=== PATIENT | female | born 1990 | race Caucasian/White ===

== ENCOUNTER 2019-06-09 05:48 | Inpatient (IN) ==
[2019-06-09] MEDS ORDERED: Ringers Solution, Lactated 1,000 ML IVC ONE (06:21)
[2019-06-09] MEDS ORDERED: Metoclopramide 10 MG/2 ML VIAL IVP ONE (06:21)
[2019-06-09] MEDS ORDERED: Famotidine 20 MG/2 ML VIAL IVP ONE (06:21)
[2019-06-09] MEDS ORDERED: Oxytocin 20 units/ LR 1000 mL 20 UNIT/1,000 ML BAG IVC ONE (06:21)
[2019-06-09] MEDS ORDERED: ceFAZolin 3,000 MG in Water for inj. (sterile) 30 ML IVP ONE (06:25)
[2019-06-09] MEDS ORDERED: Ringers Solution, Lactated 1,000 ML ONE ×2 (06:26→07:30)
[2019-06-09] MEDS ORDERED: Ringers Solution, Lactated 1,000 ML IVC SCH (06:30)
[2019-06-09] MEDS ORDERED: Oxytocin 20 units/ LR 1000 mL 20 UNIT/1,000 ML BAG IVC SCH (06:30)
[2019-06-09 06:35] LABS: Basophils % 0.2 %; Eosinophils # 0.2 K/mcL (0.0-0.6); Eosinophils % 1.7 %; Hematocrit 33.4 % (35.3-44.9); Hemoglobin 10.8 g/dL (11.5-15.4); Immature Granulocytes % 0.5 % (0-4); Lymphocytes # 2.7 K/mcL (0.6-4.6); Lymphocytes % 25.7 %; Mean Corpuscular HGB Conc 32.3 g/dL (31.6-35.5); Mean Corpuscular Hemoglobin 28.6 pg (28.0-33.3); Mean Corpuscular Volume 88.4 fL (83.0-100.0); Mean Platelet Volume 10.6 fL (9.4-12.4); Monocytes # 0.6 K/mcL (0.0-1.3); Monocytes % 5.8 %; Neutrophils # 6.8 K/mcL (1.6-8.9); Platelet Count 233 K/mcL (140-400); Red Blood Count 3.78 M/mcL (3.82-4.97); Red Cell Distribution Width 13.9 % (11.5-14.5); Segmented Neutrophils % 66.1 %; White Blood Count 10.3 K/mcL (4.3-11.1)
--- NOTE | 2019-06-09 07:16 | Anesthesia Evaluation PreOp ---
Date of Encounter: 06/09/19 Time of Encounter: 07:04 - Past History Planned Operation: repeat , Cardiac History: Denies any Significant Hx Pulmonary History: Denies Any Significant HX DRIVEWAY ATTENDANT History: Other (scoliosis, chronic back pain with sciatiac on left down to ankle.) Other Medical History: Other (MO, BMI=55) Anesthesia History: No Prior Anesthetic Complications, Past Anesthesia (first baby epidural one sided = GA second PDPH no blood patch offered =GA third could not get spinal = GA wishes to attempt regional this time but only wants 1 try) Alcohol Use: none Drug use: none Medications and Allergies [id number]/Ferrous Fumarate/FA [Kro Vitamins Tablet] 1 tab PO DAILY 12/03/18 [History] Famotidine 1 tab PO BID 01/15/19 [History] Allergy/AdvReac Type Severity Reaction Status Date / Time latex Allergy Rash Verified 06/09/19 06:17 Sulfa (Sulfonamide Allergy Rash Verified 06/09/19 06:17 Antibiotics) Anesthesia Results - Labs 06/09/19 06:24 Anesthesia Exam - HEENT Pupil (Motor): Pupils equal Mallampati: I Teeth: Normal Oral Opening: Greater than 3 - DRIVEWAY ATTENDANT LOC: Oriented DRIVEWAY ATTENDANT Motor: Normal RUE, Normal LUE, Normal RLE, Normal LLE, Normal Face DRIVEWAY ATTENDANT Sensory: Normal: RUE, LUE, RLE, LLE, Face - Cardiac Rhythm: Regular Murmur: None - Pulmonary Breath Sounds: bilateral Clear Respiratory Effort: Symmetrical Anesthesia Assess/Plan ASA Score: 3 (scoliosis, chronic back pain, super MO) Anesthetic Plan: General, Spinal, Epidural Monitoring Plan: Standard Monitors Recovery Plan: PACU
[2019-06-09] MEDS ORDERED: *HR* Morphine Sulfate/PF 10 MG/10 ML AMPUL ONE (07:21)
[2019-06-09] MEDS ORDERED: *HR* FentaNYL (PF) 100 MCG/2 ML VIAL ONE (07:22)
[2019-06-09] MEDS ORDERED: EPHEDrine 50 MG/ML VIAL ONE (07:24)
[2019-06-09] MEDS ORDERED: *HR* Phenylephrine 10 MG/ML VIAL ONE (07:24)
--- NOTE | 2019-06-09 07:32 | OB/GYN History & Physical ---
Date of Encounter: 06/09/19 Time of Encounter: 07:20 Assessment and Plan (1) 39 weeks gestation of Current visit: Yes Status: Acute (2) Modified White class B pregestational diabetes mellitus Current visit: Yes Status: Acute (3) Obesity affecting in third trimester Current visit: Yes Status: Acute (4) Encounter for maternal care for scar from repeat delivery Current visit: Yes Status: Acute Risks, benefits, and alternatives were previously discussed with the patient and informed consent obtained. She denies any questions today. I have offered and she declines sterilization procedure. (5) Cessation of tobacco use in previous 12 months Current visit: Yes Status: Acute History of Present Illness Chief complaint: repeat HPI: Ms. Maguire is a 28 year old female G 10 P 3-0-6-3 at 39 1/7 weeks presents for repeat section. She denies any leaking fluid, vaginal bleeding, or contractions. She reports good movement and good glycemic control. complications: previous x 3, morbid obesity, history of incarceration, class B diabetes, tobacco use in the first trimester, and ASCUS pap with positive HPv Past Med Surg Social Fam HX - Past Medical History Source: patient Medical history: hypertension Psychiatric history: anxiety, depression, schizophrenia, other - Past Surgical History Surgical History: , cholecystectomy Additional surgical history: ACL repair left - Social History Smoking Status: Former smoker Smokeless Tobacco Status: No Alcohol use: none Drug use: none - Family History Father Hx Family Medical Disorders: Yes Obstetrical History - Pregnancies : 10 Para: 3 Term: 3 Ab's: 6 Livin - History/Complications History/Complications: with her 3 prior deliveries Medications and Allergies [id number]/Ferrous Fumarate/FA [Kro Vitamins Tablet] 1 tab PO DAILY 12/03/18 [History] Famotidine 1 tab PO BID 01/15/19 [History] Allergy/AdvReac Type Severity Reaction Status Date / Time latex Allergy Rash Unverified 06/09/19 07:41 Sulfa (Sulfonamide Allergy Rash Verified 06/09/19 06:17 Antibiotics) Review of System OB All systems PM: reviewed and no additional remarkable complaints except as stated Exam - Constitutional Constitutional: well developed, well nourished, no acute distress, morbidly obese - HEENT HEENT: Normocephaly, Mucus Membranes Moist - Lungs Respiratory exam: CTAB - Cardiovascular Cardiovascular exam: RRR - Abdomen Abdomen: Present: bowel sounds normal, gravid, non tender - Extremities Deep Tendon Reflex Grade: 2+ Normal Results Result Diagrams: 06/09/19 06:24 Abnormal lab results RBC 3.78 M/mcL (3.82-4.97) L 06/09/19 06:24 Hgb 10.8 g/dL (11.5-15.4) L 06/09/19 06:24 Hct 33.4 % (35.3-44.9) L 06/09/19 06:24 All other labs normal.
[2019-06-09] MEDS ORDERED: Acetaminophen IV 1,000 MG/100 ML INFUS..BTL IVPB ONE (07:37)
[2019-06-09] MEDS ORDERED: *HR* Promethazine 25 MG/ML VIAL IVP PRN (07:37)
[2019-06-09] MEDS ORDERED: Ondansetron 4 MG/2 ML VIAL IVP ONE (07:37)
[2019-06-09] MEDS ORDERED: *HR* OxyCODONE Immed Rel 5 MG TABLET PO PRN ×2 (07:37→11:06)
[2019-06-09] MEDS ORDERED: *HR* Nalbuphine 10 MG/ML AMPUL IV PRN (07:37)
[2019-06-09] MEDS ORDERED: *HR* Meperidine 25 MG/ML SYRINGE IVP PRN (07:37)
[2019-06-09] MEDS ORDERED: Ketorolac 30 MG/ML VIAL IVP ONE (07:37)
[2019-06-09] MEDS ORDERED: Albuterol 2.5 MG/3 ML NEBULIZER IH ONE (07:37)
[2019-06-09] MEDS ORDERED: *HR* HYDROmorphone (PF) 1 MG/ML SYRINGE IVP PRN (07:37)
[2019-06-09] MEDS ORDERED: *HR* Oxytocin 10 UNIT/ML VIAL IM ONE (08:13)
--- NOTE | 2019-06-09 09:23 | OB/GYN Procedure Note ---
Section - Date of procedure: 06/09/19 Preop diagnosis: desires repeat Post-op diagnosis: same Procedure: section, repeat low transverse Surgeon: Rakel Elmore Blood Loss: [phone] Was there an insurance account assistant present: Yes Post Secondary Professional: Ruchi Milton Quality Specialist: Malachi Joyner Anesthesia Type: Spinal section complications: none Disposition: L&D Recovery Room Specimens: Cord blood - (s) A Delivery Date: 06/09/19 Delivery Time: Presentation: vertex Gender: Female Viability: Viable Pounds: 7 Ounces: 4 Gram Weight: 3.28 kg at 1 minute: 9 at 5 minutes: 9 Shoulder Dystocia: not encountered Specimens collected: cord blood Placenta: spontaneous Cord: nuchal cord, 3 umbilical vessels, nuchal reduced - Narrative Narrative: Patient was taken to the operative suite and placed under spinal anesthetic. She was then prepped and draped in normal sterile fashion in the dorsal supine position. Timeout was then performed. Antibiotics were given at room time. SCDs are on and active. Pfannenstiel skin incision is then made and carried through to underlying layer of fascia with the Bovie. The fascia was then incised in the midline and incision extended laterally with the Rutledge scissors. The fascia was tented up and dissected off the rectus muscles sharply. The rectus muscles were in the midline and the peritoneum was tented up and entered sharply with the Metzenbaum scissors. The peritoneal incision was then extended bluntly. Omental adhesions adhered to the anterior abdominal wall reduced with Bovie electrocautery. Due to scarring and insufficient room a partial Maylard was then performed with Bovie electrocautery to the rectus muscle on the right side. The Tye retractor was then inserted and the vesicouterine peritoneum was entered sharply. Bladder flap was created digitally. A low transverse uterine incision was then made. The vertex was brought to the incision and the infant was delivered using fundal pressure. There was a nuchal cord that was reduced. Cord was clamped and cut. was handed to waiting nursery staff. Placenta delivered spontaneously complete and intact with a three-vessel cord. The uterus was cleared of all clots and debris using moist laparotomy sponge. The uterine incision was then closed using 0 Vicryl in a running locked fashion. A second layer of the same suture was used to obtain excellent hemostasis. The abdomen was then cleared of all clots and debris using copious irrigation. The fascial incision was then closed using 0 PDS in a running fashion. The subcuticular tissue was reapproximated using 0 plain gut in a running fashion in 2 separate layers. The skin was closed using 4-0 Vicryl in a subcuticular fashion. Steri-Strips and sterile loli dressing are then placed. Mother and taken to recovery in stable condition.
--- NOTE | 2019-06-09 09:45 | Anesthesia Evaluation Post Op ---
Date of Encounter: 06/09/19 Time of Encounter: 09:44 - Vital Signs Vital Signs: vss - Lungs Lungs: Clear Ascult./Percussion - Airway Airway: Non-obstructed - Mental Status Mental Status: Alert & Oriented, Answers Appropriately - Pain Pain Scale used: ToddCeasar (Faces) - Nausea Vomiting Nausea Vomiting: Not Present - Hydration Hydration: Ice chips, Ledezma catheter - Discharge PostOp Status: Transfer Patient to floor (when cleared)
[2019-06-09] MEDS ORDERED: Metoclopramide 10 MG/2 ML VIAL IVP PRN (11:06)
[2019-06-09] MEDS ORDERED: Sennosides 8.6 MG TABLET PO PRN (11:06)
[2019-06-09] MEDS ORDERED: Rho Immune Globulin 1,500 UNIT SYRINGE IM ONE (11:06)
[2019-06-09] MEDS ORDERED: Ondansetron 4 MG/2 ML VIAL IVP PRN (11:06)
[2019-06-09] MEDS ORDERED: Simethicone 80 MG TAB.CHEW PO PRN (11:06)
[2019-06-09] MEDS ORDERED: Naloxone 0.4 MG/ML INJ IVP PRN (11:06)
[2019-06-09] MEDS ORDERED: Acetaminophen 325 MG TABLET PO PRN (11:06)
[2019-06-09 11:22] LABS: Amphetamine Screen,Urine Negative ng/mL (Cutoff=1000); Barbiturate Screen,Urine Negative ng/mL (Cutoff=200); Benzodiazepines Screen,Urine Negative ng/mL (Cutoff=200); Cannabinoid Screen,Urine Negative ng/mL (Cutoff = 50); Cocaine Screen,Urine Negative ng/mL (Cutoff= 300); Opiate Screen,Urine Negative ng/mL (Cutoff=300); Phencyclidine Screen,Urine Negative ng/mL (Cutoff=25)
[2019-06-09] MEDS: Oxytocin 20 units/ LR 1000 mL 20 UNIT/1,000 ML BAG IVC SCH ×2 (13:21→21:28)
[2019-06-09] MEDS: *HR* OxyCODONE/APAP 5/325 TABLET PO PRN (21:36)
[2019-06-09] MEDS: Ibuprofen 600 MG TABLET PO PRN (21:36)
[2019-06-10] MEDS: Ibuprofen 600 MG TABLET PO PRN ×3 (05:47→23:42)
[2019-06-10] MEDS: *HR* OxyCODONE/APAP 5/325 TABLET PO PRN ×3 (05:47→20:41)
[2019-06-10] MEDS ORDERED: *HR* Enoxaparin 40 MG/0.4 ML SYRINGE SQ SCH (06:00)
[2019-06-10] MEDS: Prenatal Vit/FA 1 EACH TABLET PO SCH (08:37)
[2019-06-10] MEDS: Famotidine 20 MG TABLET PO SCH ×2 (08:37→16:29)
--- NOTE | 2019-06-10 10:53 | OB/GYN Progress Note ---
Date of Encounter: 06/10/19 Time of Encounter: 10:51 - Assessment and Plan (1) delivery delivered Current Visit: Yes Status: Acute Continue routine /postop care Meeting appropriate milestones Subjective - Subjective Principal diagnosis: Repeat Delivery Interval history: S/P Repeat delivery day 1 Pain is well controlled lochia is light and without clots tolerating regular diet, passing flatus voiding without difficulty VSS bottle feeding anticipate discharge home tomorrow POC per consult with Dr Tinajero Patient reports: appetite normal, voiding normally, pain well controlled, ambulating normally : doing well, bottle feeding Objective - Vital Signs Latest vital signs: Vital Signs Temp Pulse Resp BP Pulse Ox 06/10/19 08:05 97.9 F 75 16 113/72 94 06/10/19 05:30 97.8 F 87 18 120/81 96 06/09/19 20:45 98.7 F 81 16 133/75 96 06/09/19 15:00 98.5 F 86 20 118/77 06/09/19 13:33 98.3 F 85 20 110/75 95 06/09/19 12:45 98.3 F 91 16 126/87 96 06/09/19 12:30 97.7 F 86 18 118/74 97 06/09/19 11:47 98.6 F 81 20 124/71 97 Intake and Output 06/09/19 06/10/19 06/10/19 23:59 07:59 15:59 Intake Total 2000 / 2400 1550 / 1750 200 / 1750 Output Total 700 / 700 Balance 2000 / 1800 850 / 1050 200 / 1050 Intake: IV Fluids 1000 / 1000 950 / 950 Pitocin 20 unit In 1,000 ml @ 1000 / 1000 950 / 950 125 mls/hr IVC .Q8H CORIE Rx#: [id number] Oral 1000 / 1400 600 / 800 200 / 800 Output: Catheter 700 / 700 Other: Meal Dinner Breakfast Percent of Meal Consumed 90% 100% # Voids 1 - Exam Lungs: bilateral: normal Chest: Normal S1, Normal S2 Extremities: Present: normal Abdomen: Present: normal appearance, soft. Absent: gravid, distention, tenderness Incision: Present: normal (CATHERINE dressing intact), dry, intact Uterus: Present: normal, firm Fundal Height: 0 (u/1) - Labs Labs: Laboratory Results - last 24 hr 06/09/19 06:24 Urine Opiates Screen Negative Ur Buprenorphine Scrn Negative Ur Barbiturates Screen Negative Ur Phencyclidine Scrn Negative Ur Amphetamines Screen Negative U Benzodiazepines Scrn Negative Urine Cocaine Screen Negative U Marijuana (THC) Screen Negative
[2019-06-11] MEDS: *HR* OxyCODONE/APAP 5/325 TABLET PO PRN ×3 (03:58→20:17)
[2019-06-11] MEDS: *HR* Enoxaparin 40 MG/0.4 ML SYRINGE SQ SCH (08:50)
[2019-06-11] MEDS: Ibuprofen 600 MG TABLET PO PRN (08:51)
[2019-06-11] MEDS: Famotidine 20 MG TABLET PO SCH ×2 (08:51→15:26)
[2019-06-11] MEDS: Prenatal Vit/FA 1 EACH TABLET PO SCH (08:51)
--- NOTE | 2019-06-11 09:40 | OB/GYN Progress Note ---
Date of Encounter: 06/11/19 Time of Encounter: 09:37 - Assessment and Plan (1) Status post repeat low transverse section Current Visit: Yes Status: Acute Patient has met all milestones. She is having no difficulty with urination, or passing gas. She is able to ambulate, she is eating and drinking appropriately. She is having minimal lochia. Her pain is controlled when she is taking the Motrin and Percocet. Her mood is appropriate At this point time she would be eligible for discharge, but given her social situation, and the need to have her child on the 3 day home we will continue to keep her as an inpatient until morning. Subjective - Subjective Principal diagnosis: Status post section Interval history: Patient is on day 2 status post section Patient reports: appetite normal, voiding normally, pain poorly controlled (She reports that she feels that she was hit by a semitruck, but she does state that when she takes her Motrin, or Percocet that her pain does get better. She describes her pain as a dull constant achy pain sometimes becomes sharp with movement over her incision site. She has no other complaints at this time), ambulating normally, other (The patient is passing gas, but is yet to have a bowel movement. She has had minimal lochia since the . She is changed her pad 3 times but none of them have been near full. ), no nauseated [place]: doing well, bottle feeding Objective - Vital Signs Latest vital signs: Vital Signs Temp Pulse Resp BP Pulse Ox 06/11/19 08:12 98.2 F 83 16 131/78 95 06/11/19 03:48 79 16 103/57 06/10/19 23:46 146/83 06/10/19 20:40 98.6 F 84 14 139/85 96 Intake and Output 06/10/19 06/11/19 06/11/19 23:59 07:59 15:59 Intake Total 200 / 1950 800 / 1040 240 / 1040 Output Total 500 / 1200 414 / 414 Balance -300 / 750 386 / 626 240 / 626 Intake: Oral 200 / 1000 800 / 1040 240 / 1040 Output: Urine 500 / 500 414 / 414 - Exam Lungs: bilateral: normal Chest: Normal S1, Normal S2 Extremities: Present: edema (Minimal nonpitting edema bilaterally on the lower extremities) Abdomen: Present: normal appearance, soft, other (Is some mild ecchymosis noted to the abdomen. The patient is receiving Lovenox injections. Bowelsounds 4) Incision: Present: dry, intact, dressed (There has been no increase in the margin of blood on the dressing from yesterday.) Uterus: Present: normal, firm Comments: Uterine fundus is 1-1-1/2 finger lengths below the umbilicus Patient shows no signs of depression or anxiety, her mood is appropriate
[2019-06-11 19:59] VITALS: BP 122/77
[2019-06-12] MEDS: Ibuprofen 600 MG TABLET PO PRN (01:52)
[2019-06-12] MEDS: *HR* OxyCODONE/APAP 5/325 TABLET PO PRN ×2 (02:32→08:03)
[2019-06-12] MEDS: Prenatal Vit/FA 1 EACH TABLET PO SCH (08:03)
[2019-06-12] MEDS: Famotidine 20 MG TABLET PO SCH (08:03)
[2019-06-12] MEDS: *HR* Enoxaparin 40 MG/0.4 ML SYRINGE SQ SCH (08:04)
--- NOTE | 2019-06-12 10:20 | Discharge Summary ---
Date of Encounter: 06/12/19 Time of Encounter: 10:18 - Discharge Diagnosis (1) Status post repeat low transverse section Priority: Primary Status: Acute Comments: Stable, meeting all PP milestones, pain well managed, desires discharge. - Discharge Medications Prescriptions: New Ibuprofen [Motrin] 600 mg PO Q6HR PRN #60 tablet PRN Reason: Cramping OxyCODONE/APAP 5/325 [Percocet 5/325 MG] 1 each PO Q4HR PRN 5 Days #20 tablet PRN Reason: Moderate pain 4-6 Acetaminophen [Tylenol] 325 mg PO Q6HR PRN tablet PRN Reason: Fever/Pain Docusate [Colace] 100 mg PO BID #30 capsule Simethicone [Gas-X] 80 mg PO TID PRN tab.chew PRN Reason: Dyspepsia Continued Ifl800/Ferrous Fumarate/FA [Kro Vitamins Tablet] 1 tab PO DAILY Famotidine 1 tab PO BID Home Medications: [id number]/Ferrous Fumarate/FA [Kro Vitamins Tablet] 1 tab PO DAILY 12/03/18 [History] Famotidine 1 tab PO BID 01/15/19 [History] Acetaminophen [Tylenol] 325 mg PO Q6HR PRN tablet 06/12/19 [Rx] Docusate [Colace] 100 mg PO BID #30 capsule 06/12/19 [Rx] Ibuprofen [Motrin] 600 mg PO Q6HR PRN #60 tablet 06/12/19 [Rx] OxyCODONE/APAP 5/325 [Percocet 5/325 MG] 1 each PO Q4HR PRN 5 Days #20 tablet 06/12/19 [Rx] Simethicone [Gas-X] 80 mg PO TID PRN tab.chew 06/12/19 [Rx] Allergies/Adverse Reactions: Allergy/AdvReac Type Severity Reaction Status Date / Time Sulfa (Sulfonamide Allergy Rash Verified 06/12/19 06:38 Antibiotics) latex AdvReac Mild Rash Unverified 06/12/19 06:38 Data Procedures and tests throughout hospitalization: Laboratory Tests 06/09/19 06/09/19 06:24 06:24 WBC 10.3 RBC 3.78 L Hgb 10.8 L Hct 33.4 L MCV 88.4 MCH 28.6 MCHC 32.3 RDW 13.9 Plt Count 233 MPV 10.6 Immature Gran % 0.5 Seg Neutrophils % 66.1 Lymphocytes % 25.7 Monocytes % 5.8 Eosinophils % 1.7 Basophils % 0.2 Neutrophils # 6.8 Lymphocytes # 2.7 Monocytes # 0.6 Eosinophils # 0.2 Basophils # 0.0 Urine Opiates Screen Negative Ur Buprenorphine Scrn Negative Ur Barbiturates Screen Negative Ur Phencyclidine Scrn Negative Ur Amphetamines Screen Negative U Benzodiazepines Scrn Negative Urine Cocaine Screen Negative U Marijuana (THC) Screen Negative Ur Drug Screen Interp See Below Date of admission: 06/09/19 05:48 Primary care physician: PCP NONE Consults: 06/09/19 11:06 Consult to Occupational Therapist Per Diem (W&C) [CONS] Routine Reason For Exam: Reason for SW Consult: history of incarceration and does not have custody of her children Discharging clinician: Chelsie Lewis Anticipated date of discharge: 06/12/19 - Patient Status Disposition: Home, Self-Care Condition: Good Functional capacity at discharge: independent ambulation Overall status at discharge: patient is progressing back to baseline - Discharge Instructions Instructions: Section (DC), Your 's Appearance (DC), Caring for Your Baby (GEN) Follow Up With: Rakel Purcell DO [Partnered Physician] - 06/23/19 3:15 pm (C/S FOLLOW UP) NONE,PCP [Primary Care Provider] - Additional Instructions: ATTEND FOLLOW-UP APPOINTMENT Perineal Care: Always wipe front to back Change your pad frequently Use your jayce bottle with warm water and spray front to back Do not douche, use tampons, have sexual intercourse or put anything in your vagina for 4-6 weeks after delivery Bleeding: Vaginal bleeding can last up to 6 weeks Your menstrual period may return as early as 6 weeks after you are discharged from the hospital Mead/Stitches Care: Vaginal Delivery Vaginal stitches will dissolve within 4-6 weeks Follow perineal care instructions Care Stitches will dissolve on their own If you have ken, they will need to be removed in the doctors office within 5-7 days. You may shower with stitches or ken Drip plan or soapy water over the incision to clean. Pat dry gently with a clean towel. Make sure you completely dry under the skin folds DO NOT USE powders, lotions, rubbing alcohol or hydrogen peroxide on or around your incision. This will slow your wound healing It is normal to have soreness, burning, tingling, itchiness and/or numbness as your incision heals Activity: Rest frequently Do not lift anything heavier than a gallon of milk, up to 10-15 pounds No driving for 1-2 weeks for Vaginal delivery No driving for 2-4 weeks for delivery Take stairs slowly, one at a time Gradually increase your daily activity until you are back to your normal routine Do not exercise until you have had your follow-up appointment Bathing: Take a shower daily Do not take a tub bath for the first 4 weeks Diet: Drink plenty of water and fruit juices Eat a well-balanced diet with foods high in fiber such as fruits and vegetables Depression: Your hormones have a major impact on your feelings and emotions. Hormone imbalance may cause changes in your mood, creating unfamiliar thoughts and actions. Support is available to help you understand and cope with these feelings and mood changes. If you answer yes to any of the following questions, please call your health care provider: Are you having trouble sleeping? Are you feeling isolated? Have you lost your appetite? Are you having thoughts of hurting yourself or others? WARNING SIGNS: Heavy bleeding from the vagina (blood is bright red and soaks a sanitary pad in an hour or less.) Passing a blood clot larger than your fist Discharge from the vagina that has a bad odor Temperature over 100.4 F, or if you feel cold and have chills An episiotomy site that is warm, swollen or oozing. Use a mirror if needed Urination (pee) that is painful, very red and swollen or leaking fluid An incision that is painful, very red and swollen and leaking fluid An incision that has come open Breasts that are painful or full with flu like symptoms Redness, warmth or swelling in the calf of your leg Trouble breathing, dizziness, visual disturbance or faintness *Notify your health care provider immediately or go to the nearest Emergency Room if you experience any of the above signs.* To contact the nurses station 24 hours a day, For non-urgent, routine questions, please call the office at - Diet and Activity Activity: resume usual activities as tolerated Diet: regular diet Hospital Course Reason for admission: section Delivery: section Episiotomy: none Laceration: none Other procedures: none complications: none Discharge diagnosis: IUP at term delivered Hospital course: Section - Date of procedure: 06/09/19 Preop diagnosis: desires repeat Post-op diagnosis: same Procedure: section, repeat low transverse Surgeon: Rakel Elmore Blood Loss: 600 Was there an legislative assistant present: Yes Founder: Ruchi Milton Diamond Setter: Malachi Joyner Anesthesia Type: Spinal section complications: none Disposition: L&D Recovery Room Specimens: Cord blood - Infant (s) Infant A Infant Delivery Date: 06/09/19 Infant Delivery Time: : Presentation: vertex Gender: Female Viability: Viable Pounds: 7 Ounces: 4 Gram Weight: 3.28 kg at 1 minute: 9 at 5 minutes: 9 Shoulder Dystocia: not encountered Specimens collected: cord blood Placenta: spontaneous Cord: nuchal cord, 3 umbilical vessels, nuchal reduced Stable in PP and appropriate for discharge OARRS reviewed Time Attestation: Total time spent providing and/or coordinating discharge services: - VTE Documentation of Mechanical Device: Intermittent pneumatic compression device Exam - Constitutional Vitals: Temp Pulse Resp BP Pulse Ox 98.3 F 73 16 122/77 96 06/11/19 19:58 06/11/19 19:58 06/11/19 19:58 06/11/19 19:58 06/11/19 19:58 General appearance IM: A&O X 3 - Respiratory Respiratory exam: Present: CTAB - Cardiovascular Cardiovascular exam IM: Present: RRR - GI/Abdominal GI/Abdominal exam IM: soft Incision: dressed (CATHERINE in place ) - Uterine Tone: Firm Uterus Position: At Umbilicus - Extremities Exam Extremities exam IM: Present: normal capillary refill, normal inspection - Neurological Exam Neurological exam: normal gait, oriented X3 - Psychiatric Additional comments: reports good mood
== END 2019-06-12 11:49 | disposition home or self-care (01) | DRG 540 ==
LOC: 1NENULAB 05:48 → 1NENUOBS 11:37
PROVIDERS: ADMIT Obstetrics & Gynecology; ATTEND Obstetrics & Gynecology

== ENCOUNTER 2020-08-13 06:16 | Inpatient (IN) ==
[2020-08-13] MEDS ORDERED: Metoclopramide 10 MG/2 ML VIAL IVP ONE (06:22)
[2020-08-13] MEDS ORDERED: CeFAZolin Syr 3,000MG/30 ML 3,000 MG/30 ML SYRINGE IVPB ONE (06:22)
[2020-08-13] MEDS ORDERED: Famotidine 20 MG/2 ML VIAL IVP ONE (06:22)
[2020-08-13] MEDS ORDERED: Ringers Solution, Lactated 1,000 ML IVC ONE (06:22)
[2020-08-13 06:37] LABS: Basophils % 0.4 %; Eosinophils # 0.3 K/mcL (0.0-0.6); Eosinophils % 2.3 %; Hematocrit 36.8 % (35.3-44.9); Hemoglobin 11.8 g/dL (11.5-15.4); Immature Granulocytes % 0.9 % (0-4); Lymphocytes # 2.6 K/mcL (0.6-4.6); Lymphocytes % 23.4 %; Mean Corpuscular HGB Conc 32.1 g/dL (31.6-35.5); Mean Corpuscular Hemoglobin 27.3 pg (28.0-33.3); Mean Corpuscular Volume 85.2 fL (83.0-100.0); Mean Platelet Volume 10.5 fL (9.4-12.4); Monocytes # 0.6 K/mcL (0.0-1.3); Monocytes % 5.8 %; Neutrophils # 7.4 K/mcL (1.6-8.9); Platelet Count 266 K/mcL (140-400); Red Blood Count 4.32 M/mcL (3.82-4.97); Red Cell Distribution Width 13.4 % (11.5-14.5); Segmented Neutrophils % 67.2 %
[2020-08-13 06:47] LABS: Amphetamine Screen,Urine Negative ng/mL (Cutoff=1000); Barbiturate Screen,Urine Negative ng/mL (Cutoff=200)
[2020-08-13 06:48] LABS: Benzodiazepines Screen,Urine Negative ng/mL (Cutoff=300)
[2020-08-13 06:49] LABS: Cannabinoid Screen,Urine Negative ng/mL (Cutoff = 50); Cocaine Screen,Urine Negative ng/mL (Cutoff= 300); Opiate Screen,Urine Negative ng/mL (Cutoff=300); Phencyclidine Screen,Urine Negative ng/mL (Cutoff=25)
[2020-08-13] MEDS ORDERED: *HR* FentaNYL (PF) 100 MCG/2 ML VIAL ONE (06:54)
[2020-08-13] MEDS ORDERED: *HR* Oxytocin 10 UNIT/ML VIAL IM ONE (06:54)
[2020-08-13] MEDS ORDERED: *HR* Morphine Sulfate/PF 10 MG/10 ML AMPUL ONE (06:54)
[2020-08-13] MEDS ORDERED: EPHEDrine 50 MG/ML VIAL ONE (06:55)
[2020-08-13] MEDS ORDERED: Oxytocin 20 units/ LR 1000 mL 40 UNIT/2,000 ML BAG IVC ONE (07:26)
[2020-08-13] MEDS ORDERED: Ringers Solution, Lactated 1,000 ML ONE (07:26)
[2020-08-13] MEDS ORDERED: Ondansetron 4 MG/2 ML VIAL IVP PRN ×2 (08:29→11:38)
[2020-08-13] MEDS ORDERED: *HR* HYDROmorphone PF 0.5 MG/0.5 ML SYRINGE IVP PRN (08:29)
[2020-08-13] MEDS ORDERED: Acetaminophen IV 1,000 MG/100 ML INFUS..BTL IVPB PRN (08:29)
[2020-08-13] MEDS ORDERED: Simethicone 80 MG TAB.CHEW PO PRN (11:38)
[2020-08-13] MEDS ORDERED: Sennosides 8.6 MG TABLET PO PRN (11:38)
[2020-08-13] MEDS ORDERED: Oxytocin 20 units/ LR 1000 mL 20 UNIT/1,000 ML BAG IVC SCH (11:38)
[2020-08-13] MEDS ORDERED: *HR* OxyCODONE Immed Rel 5 MG TABLET PO PRN (11:38)
[2020-08-13] MEDS ORDERED: Metoclopramide 10 MG/2 ML VIAL IVP PRN (11:38)
[2020-08-13] MEDS ORDERED: Acetaminophen 325 MG TABLET PO PRN (11:38)
[2020-08-13] MEDS: Ibuprofen 600 MG TABLET PO PRN (20:14)
[2020-08-14] MEDS: *HR* OxyCODONE/APAP 5/325 TABLET PO PRN ×3 (04:29→18:10)
[2020-08-14] MEDS: Ibuprofen 600 MG TABLET PO PRN ×3 (04:29→18:10)
[2020-08-14] MEDS: Prenatal Vit/FA 1 EACH TABLET PO SCH (07:45)
[2020-08-14] MEDS: *HR* Enoxaparin 80 MG/0.8 ML SYRINGE SQ SCH ×2 (10:15→18:10)
[2020-08-15] MEDS: Ibuprofen 600 MG TABLET PO PRN ×2 (00:22→07:26)
[2020-08-15] MEDS: *HR* OxyCODONE/APAP 5/325 TABLET PO PRN ×2 (00:22→05:37)
[2020-08-15] MEDS: *HR* Enoxaparin 80 MG/0.8 ML SYRINGE SQ SCH (05:37)
[2020-08-15 07:50] VITALS: BP 131/87
[2020-08-15] MEDS: Prenatal Vit/FA 1 EACH TABLET PO SCH (08:51)
== END 2020-08-15 11:30 | disposition home or self-care (01) | DRG 539 ==
LOC: 1NENULAB 06:16 → EDSTATUS 07:45 → 1NENUOBS 11:14
PROVIDERS: ADMIT Obstetrics & Gynecology; ATTEND Obstetrics & Gynecology